=== PATIENT | male | born 1990 | race Caucasian/White ===

== ENCOUNTER 2017-04-18 14:33 | Emergency (ER) | payer OTHER ==
[~2017-04-18] VITALS: Ht 182.9 cm; Wt 165.0 kg
[~2017-04-18 14:33] MED LIST: ASPI325T24 PO; OXYC1TAB23 PO
[2017-04-18 14:34] VITALS: BP 130/96
[2017-04-18] MEDS ORDERED: CLON0.5T PO (14:47)
[2017-04-18] MEDS ORDERED: TRAZ10TA GT (14:47)
[2017-04-18] MEDS ORDERED: HYDR-3363 PO (14:49)
== END 2017-04-18 17:11 | disposition home or self-care (01) ==
LOC: M ED 14:33
DX: F41.9 Anxiety disorder, unspecified (principal); F17.210 Nicotine dependence, cigarettes, uncomplicated; Z79.899 Other long term (current) drug therapy

== ENCOUNTER 2017-04-18 21:27 | Emergency (ER) | payer OTHER ==
[~2017-04-18] VITALS: Ht 182.9 cm; Wt 79.5 kg
[~2017-04-18 21:27] MED LIST changes: +CLON0.5T PO; +HYDR-3363 PO; +TRAZ10TA GT
[2017-04-18 23:28] VITALS: BP 126/62
== END 2017-04-18 23:30 | disposition home or self-care (01) ==
LOC: M ED 21:27
DX: F41.9 Anxiety disorder, unspecified (principal); F17.210 Nicotine dependence, cigarettes, uncomplicated; Z79.899 Other long term (current) drug therapy